=== PATIENT | female | born 1985 | race Caucasian/White ===

== ENCOUNTER 2017-07-22 12:46 | Inpatient (IN) | payer OTHER ==
[2017-07-22] MEDS: ONDANSETRON 4 MG INJ IV (13:31)
[2017-07-22] MEDS: ACETAMINOPHEN 325 MG TAB PO (13:31)
[2017-07-22] MEDS: morphine 4 MG/ML VIAL IV ×2 (13:31→16:49)
[2017-07-22] MEDS: SODIUM CHLORIDE 0.9% 1L BAG IV* (13:32)
[2017-07-22 13:43] LABS: ADD MAN DIFF? NO
[2017-07-22 13:45] LABS: BASOPHILS % 0.3 % (0.0-2.0); HEMATOCRIT 41.4 % (37.0-47.0); LYMPHOCYTES # 1.4 10^3/ul (0.8-2.9); LYMPHOCYTES % 9.4 % (15.0-51.0); MEAN CORPUSCULAR HEMOGLOBIN 26.2 pg (29.0-33.0); MEAN CORPUSCULAR HGB CONC 31.4 g/dl (32.0-37.0); MEAN CORPUSCULAR VOLUME 83.5 fl (82.0-101.0); MEAN PLATELET VOLUME 9.5 fl (7.4-10.4); MONOCYTES % 6.7 % (0.0-11.0); NEUTROPHIL # 11.9 10^3/ul (1.6-7.5); NEUTROPHILS % 83.3 % (39.0-77.0); PLATELET COUNT 337 10^3/UL (140-415); RED BLOOD COUNT 4.96 10^6/ul (4.20-5.40); RED CELL DISTRIBUTION WIDTH 14.6 % (11.5-14.5)
[2017-07-22 13:45] LABS: WHITE BLOOD COUNT 14.3 10^3/ul (4.8-10.8)
[2017-07-22 14:01] LABS: LACTIC ACID 1.2 mmol/L (0.5-2.0)
[2017-07-22 14:03] LABS: ALANINE AMINOTRANSFERASE 20 IU/L (13-69); ALBUMIN 4.5 g/dl (3.3-4.9); ALBUMIN/GLOBULIN RATIO 1.18; ALKALINE PHOSPHATASE 87 IU/L (42-121); ANION GAP 16 (8-16); ASPARTATE AMINO TRANSFERASE 16 IU/L (15-46); BILIRUBIN,INDIRECT 0.7 mg/dl (0-1.1); BILIRUBIN,TOTAL 0.7 mg/dl (0.2-1.3); BLOOD UREA NITROGEN 5 mg/dl (7-20); CALCIUM 9.1 mg/dl (8.4-10.2); CARBON DIOXIDE 25 mmol/L (21-31); CHLORIDE 100 mmol/L (97-110); GLUCOSE 98 mg/dl (70-220); POTASSIUM 3.7 mmol/L (3.5-5.1); SODIUM 137 mmol/L (135-144); TOTAL PROTEIN 8.3 g/dl (6.1-8.1)
[2017-07-22 14:06] LABS: INR 0.97
[2017-07-22 14:07] LABS: PARTIAL THROMBOPLASTIN TIME 33.7 Sec (25.0-35.0)
[2017-07-22 15:29] LABS: ADD UMIC YES; UR ASCORBIC ACID NEGATIVE (NEGATIVE); UR BACTERIA FEW /HPF (NONE SEEN); UR BILIRUBIN (Dip) NEGATIVE (NEGATIVE); UR BLOOD (Dip) 2+ mg/dL (NEGATIVE); UR CLARITY CLEAR (CLEAR); UR COLOR YELLOW (YELLOW); UR GLUCOSE (Dip) NEGATIVE (NEGATIVE); UR KETONES (Dip) TRACE mg/dL (NEGATIVE); UR LEUKOCYTE ESTERASE (Dip) 2+ Leu/ul (NEGATIVE); UR MUCUS FEW /HPF (NONE SEEN); UR NITRITE (Dip) NEGATIVE (NEGATIVE); UR RBC 13 /HPF (0-5); UR SPECIFIC GRAVITY (Dip) 1.013 (1.003-1.030); UR SQUAMOUS EPITHELIAL CELL FEW /HPF (FEW); UR TOTAL PROTEIN (Dip) NEGATIVE (NEGATIVE); UR UROBILINOGEN (Dip) NEGATIVE (NEGATIVE); UR WBC 60 /HPF (0-5)
[2017-07-22] MEDS: CEFTRIAXONE 1 GM/50 ML (PMX) 50 ML IVPB (15:48)
[2017-07-22] MEDS: KETOROLAC 30 MG INJ IV (16:48)
[2017-07-22] MEDS: AZITHROMYCIN 250 MG TAB PO (17:24)
[2017-07-22] MEDS: LACTATED RINGER'S 1,000 ML IV (18:16)
[2017-07-22] MEDS: metroNIDAZOLE 500 MG/NS (PMX) 100 ML IVPB (18:18)
[2017-07-22] MEDS ORDERED: morphine 2 MG INJ IV (20:30)
[2017-07-22] MEDS ORDERED: NACL 0.9% 3 ML SYG IV (20:30)
[2017-07-22] MEDS ORDERED: ONDANSETRON 4 MG INJ IV (20:30)
[2017-07-22] MEDS: SOD CHLORIDE 0.9% 1,000 ML IV (21:20)
[2017-07-22] MEDS: SOD CHLORIDE 0.9% 500 ML IV (22:07)
[2017-07-22] MEDS ORDERED: GENTAMICIN IV PER PHARMACY XX (23:00)
[2017-07-23] MEDS: CLINDAMYCIN 900 MG/D5W (PMX) 50 ML IVPB ×2 (00:04→05:33)
[2017-07-23] MEDS: SOD CHLORIDE 0.9% IVPB (01:34)
[2017-07-23] MEDS: GENTAMICIN IVPB (01:34)
[2017-07-23] MEDS: metroNIDAZOLE 500 MG/NS (PMX) 100 ML IVPB ×3 (02:44→22:08)
[2017-07-23] MEDS: SOD CHLORIDE 0.9% 1,000 ML IV ×4 (03:10→16:50)
[2017-07-23 03:28] LABS: ADD MAN DIFF? NO
[2017-07-23 03:33] LABS: BASOPHILS % 0.2 % (0.0-2.0); EOSINOPHILS % 0.1 % (0.0-7.0); HEMATOCRIT 32.2 % (37.0-47.0); HEMOGLOBIN 10.3 g/dl (12.0-16.0); LYMPHOCYTES # 1.5 10^3/ul (0.8-2.9); LYMPHOCYTES % 9.5 % (15.0-51.0); MEAN CORPUSCULAR HEMOGLOBIN 26.8 pg (29.0-33.0); MEAN CORPUSCULAR VOLUME 83.9 fl (82.0-101.0); MEAN PLATELET VOLUME 9.7 fl (7.4-10.4); MONOCYTE # 1.1 10^3/ul (0.3-0.9); MONOCYTES % 6.6 % (0.0-11.0); NEUTROPHIL # 13.4 10^3/ul (1.6-7.5); NEUTROPHILS % 83.2 % (39.0-77.0); PLATELET COUNT 252 10^3/UL (140-415); RED BLOOD COUNT 3.84 10^6/ul (4.20-5.40); RED CELL DISTRIBUTION WIDTH 14.6 % (11.5-14.5)
[2017-07-23 03:33] LABS: WHITE BLOOD COUNT 16.1 10^3/ul (4.8-10.8)
[2017-07-23 03:47] LABS: LACTIC ACID 0.8 mmol/L (0.5-2.0)
[2017-07-23 03:49] LABS: ALANINE AMINOTRANSFERASE 21 IU/L (13-69); ALBUMIN 2.9 g/dl (3.3-4.9); ALBUMIN/GLOBULIN RATIO 0.96; ALKALINE PHOSPHATASE 66 IU/L (42-121); ANION GAP 11 (8-16); ASPARTATE AMINO TRANSFERASE 12 IU/L (15-46); BILIRUBIN,INDIRECT 0.7 mg/dl (0-1.1); BILIRUBIN,TOTAL 0.7 mg/dl (0.2-1.3); BLOOD UREA NITROGEN 5 mg/dl (7-20); CALCIUM 7.8 mg/dl (8.4-10.2); CARBON DIOXIDE 22 mmol/L (21-31); CHLORIDE 109 mmol/L (97-110); CHOL/HDL RATIO 3.6 RATIO; CHOLESTEROL 101 mg/dl (100-200); CREATININE 0.56 mg/dl (0.44-1.00); GLUCOSE 88 mg/dl (70-220); HDL CHOLESTEROL 28 mg/dl (34-82); LDL CHOLESTEROL,CALCULATED 56 mg/dl; MAGNESIUM 1.4 mg/dl (1.7-2.5); POTASSIUM 3.7 mmol/L (3.5-5.1); SODIUM 138 mmol/L (135-144); TOTAL PROTEIN 5.9 g/dl (6.1-8.1); TRIGLYCERIDES 87 mg/dl (0-149)
[2017-07-23 03:50] LABS: HEMOGLOBIN A1C 5.3 % (0-5.9)
[2017-07-23 04:57] LABS: THYROID STIMULATING HORMONE 0.511 MIU/L (0.465-4.680)
[2017-07-23] MEDS: KETOROLAC 30 MG INJ IV (05:58)
[2017-07-23] MEDS: SOD CHLORIDE 0.9% 500 ML IV (06:45)
[2017-07-23] MEDS: MAG SULFATE 2GM IN 50 ML IVPB (07:54)
[2017-07-23] MEDS ORDERED: MAGNESIUM SULFATE 3 GM in DEXTROSE 5% 100 ML IVPB (08:00)
[2017-07-23] MEDS ORDERED: MEROPENEM 1 GM/50ML(PMX) 50 ML IVPB (08:30)
[2017-07-23] MEDS: MAGNESIUM SULFATE 1 GM/D5W 100 ML IVPB (09:32)
[2017-07-23] MEDS: CEFTRIAXONE 1 GM/50 ML (PMX) 50 ML IVPB (10:55)
[2017-07-23] MEDS: DOXYCYCLINE 100 MG in SOD CHLORIDE 0.9% 250 ML IVPB ×2 (11:45→20:54)
[2017-07-23] MEDS: morphine LIQ (10 MG/5 ML) CUP PO (16:48)
[2017-07-23] MEDS ORDERED: IOHEXOL 10 MG(I)/ML (PED) BTL PO (17:30)
[2017-07-23] MEDS ORDERED: IOHEXOL 14.3 MG(I)/ML (ADULT) BTL PO (17:30)
[2017-07-23] MEDS: BARIUM SULF 2% 450 ML BTL (BERRY SMOOTHIE) PO (17:55)
[2017-07-23] MEDS: IOHEXOL 300MG/ML 150 ML BTL (18:39)
[2017-07-23] MEDS: SOD CHLORIDE 0.9% 100 ML (18:39)
[2017-07-23 20:04] LABS: ADD MAN DIFF? NO
[2017-07-23 20:09] LABS: WHITE BLOOD COUNT 16.7 10^3/ul (4.8-10.8)
[2017-07-23 20:09] LABS: BASOPHILS % 0.2 % (0.0-2.0); EOSINOPHILS % 0.1 % (0.0-7.0); HEMATOCRIT 33.6 % (37.0-47.0); HEMOGLOBIN 10.9 g/dl (12.0-16.0); LYMPHOCYTES # 1.2 10^3/ul (0.8-2.9); MEAN CORPUSCULAR HEMOGLOBIN 26.8 pg (29.0-33.0); MEAN CORPUSCULAR HGB CONC 32.4 g/dl (32.0-37.0); MEAN CORPUSCULAR VOLUME 82.6 fl (82.0-101.0); MEAN PLATELET VOLUME 9.6 fl (7.4-10.4); MONOCYTE # 0.8 10^3/ul (0.3-0.9); MONOCYTES % 4.9 % (0.0-11.0); NEUTROPHIL # 14.6 10^3/ul (1.6-7.5); NEUTROPHILS % 87.3 % (39.0-77.0); PLATELET COUNT 289 10^3/UL (140-415); RED BLOOD COUNT 4.07 10^6/ul (4.20-5.40); RED CELL DISTRIBUTION WIDTH 14.4 % (11.5-14.5)
[2017-07-23] MEDS: ACETAMINOPHEN 325 MG TAB PO (21:15)
[2017-07-24] MEDS: SOD CHLORIDE 0.9% 1,000 ML IV ×3 (02:14→21:18)
[2017-07-24] MEDS: metroNIDAZOLE 500 MG/NS (PMX) 100 ML IVPB ×3 (05:25→22:58)
[2017-07-24 06:10] LABS: ADD MAN DIFF? NO
[2017-07-24 06:21] LABS: WHITE BLOOD COUNT 16.1 10^3/ul (4.8-10.8)
[2017-07-24 06:21] LABS: BASOPHILS % 0.2 % (0.0-2.0); EOSINOPHILS % 0.2 % (0.0-7.0); HEMOGLOBIN 9.7 g/dl (12.0-16.0); LYMPHOCYTES # 0.9 10^3/ul (0.8-2.9); LYMPHOCYTES % 5.5 % (15.0-51.0); MEAN CORPUSCULAR HEMOGLOBIN 26.6 pg (29.0-33.0); MEAN CORPUSCULAR HGB CONC 32.3 g/dl (32.0-37.0); MEAN CORPUSCULAR VOLUME 82.4 fl (82.0-101.0); MEAN PLATELET VOLUME 10.3 fl (7.4-10.4); MONOCYTE # 1.1 10^3/ul (0.3-0.9); MONOCYTES % 6.8 % (0.0-11.0); NEUTROPHILS % 86.7 % (39.0-77.0); PLATELET COUNT 286 10^3/UL (140-415); RED BLOOD COUNT 3.64 10^6/ul (4.20-5.40); RED CELL DISTRIBUTION WIDTH 14.7 % (11.5-14.5)
[2017-07-24] MEDS: CEFTRIAXONE 1 GM/50 ML (PMX) 50 ML IVPB (08:23)
[2017-07-24] MEDS: morphine LIQ (10 MG/5 ML) CUP PO ×2 (08:31→15:56)
[2017-07-24] MEDS: DOXYCYCLINE 100 MG in SOD CHLORIDE 0.9% 250 ML IVPB ×2 (09:04→21:18)
[2017-07-24] MEDS: HYDROmorphONE 0.5 MG/0.5 ML SYG IV (18:19)
[2017-07-24 19:44] LABS: RAPID PLASMA REAGIN NONREACTIVE (NR)
[2017-07-25] MEDS: morphine LIQ (10 MG/5 ML) CUP PO ×2 (01:50→23:59)
[2017-07-25] MEDS: metroNIDAZOLE 500 MG/NS (PMX) 100 ML IVPB ×3 (06:12→23:19)
[2017-07-25] MEDS ORDERED: metroNIDAZOLE 500 MG/100 ML NS IVPB (07:00)
[2017-07-25] MEDS ORDERED: ROCURONIUM 50 MG INJ (07:00)
[2017-07-25] MEDS: CEFTRIAXONE 1 GM/50 ML (PMX) 50 ML IVPB (08:37)
[2017-07-25] MEDS: SOD CHLORIDE 0.9% 1,000 ML IV (08:37)
[2017-07-25] MEDS: DOXYCYCLINE 100 MG in SOD CHLORIDE 0.9% 250 ML IVPB ×2 (09:17→20:44)
[2017-07-25 09:53] LABS: ADD MAN DIFF? NO
[2017-07-25 10:00] LABS: WHITE BLOOD COUNT 11.1 10^3/ul (4.8-10.8)
[2017-07-25 10:00] LABS: BASOPHILS % 0.2 % (0.0-2.0); EOSINOPHILS % 0.2 % (0.0-7.0); HEMATOCRIT 30.1 % (37.0-47.0); HEMOGLOBIN 9.8 g/dl (12.0-16.0); LYMPHOCYTES # 1.2 10^3/ul (0.8-2.9); LYMPHOCYTES % 10.8 % (15.0-51.0); MEAN CORPUSCULAR HEMOGLOBIN 26.5 pg (29.0-33.0); MEAN CORPUSCULAR HGB CONC 32.6 g/dl (32.0-37.0); MEAN CORPUSCULAR VOLUME 81.4 fl (82.0-101.0); MEAN PLATELET VOLUME 9.6 fl (7.4-10.4); MONOCYTE # 0.9 10^3/ul (0.3-0.9); MONOCYTES % 8.2 % (0.0-11.0); NEUTROPHIL # 8.9 10^3/ul (1.6-7.5); NEUTROPHILS % 80.1 % (39.0-77.0); PLATELET COUNT 323 10^3/UL (140-415); RED CELL DISTRIBUTION WIDTH 14.9 % (11.5-14.5)
[2017-07-25 10:38] LABS: ALANINE AMINOTRANSFERASE 15 IU/L (13-69); ALBUMIN 2.5 g/dl (3.3-4.9); ALBUMIN/GLOBULIN RATIO 0.83; ALKALINE PHOSPHATASE 67 IU/L (42-121); ANION GAP 10 (8-16); ASPARTATE AMINO TRANSFERASE 11 IU/L (15-46); BLOOD UREA NITROGEN 2 mg/dl (7-20); CARBON DIOXIDE 23 mmol/L (21-31); CHLORIDE 111 mmol/L (97-110); CREATININE 0.51 mg/dl (0.44-1.00); GLUCOSE 96 mg/dl (70-220); POTASSIUM 3.5 mmol/L (3.5-5.1); SODIUM 140 mmol/L (135-144); TOTAL PROTEIN 5.5 g/dl (6.1-8.1)
[2017-07-25] MEDS: morphine 2 MG INJ IV ×2 (10:47→17:16)
[2017-07-25] MEDS ORDERED: LIDOCAINE 1%/EPI 30 ML INJ (12:43)
[2017-07-25] MEDS ORDERED: FENTAnyl 50 MCG/ML VIAL ×2 (13:14→13:55)
[2017-07-25] MEDS ORDERED: MIDAZOLAM 1 MG/ML 2 ML INJ (13:14)
[2017-07-25] MEDS ORDERED: DEXAMETHASONE 4 MG/ML 1 ML INJ (13:42)
[2017-07-25] MEDS ORDERED: ONDANSETRON 4 MG INJ (13:42)
[2017-07-25] MEDS ORDERED: METOCLOPRAMIDE 10 MG INJ (13:42)
[2017-07-25] MEDS ORDERED: HYDROmorphONE 2 MG/ML SYG (14:14)
[2017-07-25] MEDS ORDERED: SUGAMMADEX SODIUM 200 MG/2 ML VIAL IV (14:22)
[2017-07-25] MEDS ORDERED: ONDANSETRON 4 MG INJ IV (15:00)
[2017-07-25] MEDS ORDERED: HYDROmorphONE 1 MG/5 ML IV SYRINGE IV ×2 (15:00)
[2017-07-26] MEDS: morphine 2 MG INJ IV ×5 (04:20→21:33)
[2017-07-26] MEDS: metroNIDAZOLE 500 MG/NS (PMX) 100 ML IVPB ×3 (05:59→21:29)
[2017-07-26] MEDS: CEFTRIAXONE 1 GM/50 ML (PMX) 50 ML IVPB (08:34)
[2017-07-26] MEDS: DOXYCYCLINE 100 MG in SOD CHLORIDE 0.9% 250 ML IVPB ×2 (09:35→22:35)
[2017-07-26 11:47] LABS: ADD MAN DIFF? NO
[2017-07-26 11:50] LABS: WHITE BLOOD COUNT 12.5 10^3/ul (4.8-10.8)
[2017-07-26 11:50] LABS: BASOPHILS % 0.2 % (0.0-2.0); HEMOGLOBIN 10.7 g/dl (12.0-16.0); LYMPHOCYTES % 8.1 % (15.0-51.0); MEAN CORPUSCULAR HEMOGLOBIN 26.4 pg (29.0-33.0); MEAN CORPUSCULAR HGB CONC 32.4 g/dl (32.0-37.0); MEAN CORPUSCULAR VOLUME 81.3 fl (82.0-101.0); MEAN PLATELET VOLUME 10.3 fl (7.4-10.4); MONOCYTE # 0.9 10^3/ul (0.3-0.9); MONOCYTES % 6.9 % (0.0-11.0); NEUTROPHIL # 10.6 10^3/ul (1.6-7.5); NEUTROPHILS % 84.4 % (39.0-77.0); PLATELET COUNT 384 10^3/UL (140-415); RED BLOOD COUNT 4.06 10^6/ul (4.20-5.40); RED CELL DISTRIBUTION WIDTH 15.3 % (11.5-14.5)
[2017-07-26 12:09] LABS: ANION GAP 9 (8-16); BLOOD UREA NITROGEN 7 mg/dl (7-20); CALCIUM 8.5 mg/dl (8.4-10.2); CARBON DIOXIDE 24 mmol/L (21-31); CHLORIDE 111 mmol/L (97-110); CREATININE 0.48 mg/dl (0.44-1.00); GLUCOSE 118 mg/dl (70-220); PHOSPHORUS 3.3 mg/dl (2.5-4.9); POTASSIUM 3.9 mmol/L (3.5-5.1); SODIUM 140 mmol/L (135-144)
[2017-07-26 17:31] LABS: HEPATITIS B SURFACE ANTIBODY NEGATIVE (NEGATIVE)
[2017-07-26 18:05] LABS: HEPATITIS B SURFACE ANTIGEN NEGATIVE (NEGATIVE)
[2017-07-26 18:23] LABS: HEPATITIS B CORE ANTIBODY NEGATIVE (NEGATIVE); HEPATITIS C VIRAL ANTIBODY NEGATIVE (NEGATIVE)
[2017-07-26 18:55] LABS: HIV 1&2 ANTIBODY NEGATIVE (NEGATIVE)
[2017-07-27 05:59] LABS: ADD MAN DIFF? NO
[2017-07-27] MEDS: metroNIDAZOLE 500 MG/NS (PMX) 100 ML IVPB (06:01)
[2017-07-27 06:03] LABS: WHITE BLOOD COUNT 7.4 10^3/ul (4.8-10.8)
[2017-07-27 06:03] LABS: BASOPHILS % 0.4 % (0.0-2.0); EOSINOPHILS % 0.4 % (0.0-7.0); HEMATOCRIT 31.9 % (37.0-47.0); HEMOGLOBIN 10.1 g/dl (12.0-16.0); LYMPHOCYTES # 2.3 10^3/ul (0.8-2.9); LYMPHOCYTES % 31.7 % (15.0-51.0); MEAN CORPUSCULAR HEMOGLOBIN 26.3 pg (29.0-33.0); MEAN CORPUSCULAR HGB CONC 31.7 g/dl (32.0-37.0); MEAN CORPUSCULAR VOLUME 83.1 fl (82.0-101.0); MEAN PLATELET VOLUME 10.2 fl (7.4-10.4); MONOCYTE # 0.5 10^3/ul (0.3-0.9); MONOCYTES % 6.5 % (0.0-11.0); NEUTROPHIL # 4.4 10^3/ul (1.6-7.5); NEUTROPHILS % 59.5 % (39.0-77.0); PLATELET COUNT 375 10^3/UL (140-415); RED BLOOD COUNT 3.84 10^6/ul (4.20-5.40); RED CELL DISTRIBUTION WIDTH 15.7 % (11.5-14.5)
[2017-07-27 06:39] LABS: ALANINE AMINOTRANSFERASE 14 IU/L (13-69); ALBUMIN 2.7 g/dl (3.3-4.9); ALBUMIN/GLOBULIN RATIO 0.87; ALKALINE PHOSPHATASE 60 IU/L (42-121); ANION GAP 10 (8-16); ASPARTATE AMINO TRANSFERASE 18 IU/L (15-46); BILIRUBIN,INDIRECT 0.1 mg/dl (0-1.1); BILIRUBIN,TOTAL 0.1 mg/dl (0.2-1.3); BLOOD UREA NITROGEN 11 mg/dl (7-20); CALCIUM 8.6 mg/dl (8.4-10.2); CARBON DIOXIDE 25 mmol/L (21-31); CHLORIDE 111 mmol/L (97-110); CREATININE 0.62 mg/dl (0.44-1.00); GLUCOSE 85 mg/dl (70-220); SODIUM 142 mmol/L (135-144); TOTAL PROTEIN 5.8 g/dl (6.1-8.1)
[2017-07-27] MEDS: morphine 2 MG INJ IV ×4 (07:33→20:33)
[2017-07-27] MEDS: CEFTRIAXONE 1 GM/50 ML (PMX) 50 ML IVPB (08:20)
[2017-07-27] MEDS: DOXYCYCLINE 100 MG TAB PO ×2 (09:57→20:16)
[2017-07-27] MEDS: L ACIDOPHIL/B LACTIS/B LONGUM CAPSULE PO ×2 (09:58→20:16)
[2017-07-27] MEDS: CLINDAMYCIN 300 MG CAP PO ×2 (12:01→17:37)
[2017-07-27 22:14] LABS: RAPID PLASMA REAGIN NONREACTIVE (NR)
[2017-07-28] MEDS: CLINDAMYCIN 300 MG CAP PO ×4 (00:13→17:32)
[2017-07-28] MEDS: L ACIDOPHIL/B LACTIS/B LONGUM CAPSULE PO ×2 (09:11→21:14)
[2017-07-28] MEDS: DOXYCYCLINE 100 MG TAB PO ×2 (09:11→21:14)
[2017-07-28] MEDS: CEFPODOXIME 200 MG TAB PO ×2 (11:41→21:14)
[2017-07-28 14:18] LABS: ADD MAN DIFF? NO
[2017-07-28 14:20] LABS: BASOPHILS % 0.4 % (0.0-2.0); EOSINOPHILS # 0.1 10^3/ul (0.0-0.5); EOSINOPHILS % 0.9 % (0.0-7.0); HEMATOCRIT 34.9 % (37.0-47.0); HEMOGLOBIN 11.4 g/dl (12.0-16.0); LYMPHOCYTES # 2.3 10^3/ul (0.8-2.9); LYMPHOCYTES % 24.8 % (15.0-51.0); MEAN CORPUSCULAR HEMOGLOBIN 26.8 pg (29.0-33.0); MEAN CORPUSCULAR HGB CONC 32.7 g/dl (32.0-37.0); MEAN CORPUSCULAR VOLUME 82.1 fl (82.0-101.0); MONOCYTE # 0.7 10^3/ul (0.3-0.9); MONOCYTES % 7.7 % (0.0-11.0); NEUTROPHIL # 5.9 10^3/ul (1.6-7.5); PLATELET COUNT 430 10^3/UL (140-415); RED BLOOD COUNT 4.25 10^6/ul (4.20-5.40)
[2017-07-28 14:20] LABS: WHITE BLOOD COUNT 9.1 10^3/ul (4.8-10.8)
[2017-07-28 14:40] LABS: ANION GAP 13 (8-16); BLOOD UREA NITROGEN 6 mg/dl (7-20); CALCIUM 8.8 mg/dl (8.4-10.2); CARBON DIOXIDE 28 mmol/L (21-31); CHLORIDE 105 mmol/L (97-110); GLUCOSE 92 mg/dl (70-220); MAGNESIUM 1.7 mg/dl (1.7-2.5); PHOSPHORUS 3.8 mg/dl (2.5-4.9); POTASSIUM 3.8 mmol/L (3.5-5.1); SODIUM 142 mmol/L (135-144)
[2017-07-29] MEDS: CLINDAMYCIN 300 MG CAP PO ×2 (00:31→05:35)
[2017-07-29] MEDS: CEFPODOXIME 200 MG TAB PO (08:52)
[2017-07-29] MEDS: L ACIDOPHIL/B LACTIS/B LONGUM CAPSULE PO (08:52)
[2017-07-29] MEDS: DOXYCYCLINE 100 MG TAB PO (08:54)
== END 2017-07-29 11:19 | disposition home or self-care (01) | DRG 744 ==
LOC: FTE 12:46 → PP2 18:16
PROC: 0UN94ZZ Release Uterus, Percutaneous Endoscopic Approach (ICD-10-PCS; principal; 2017-07-25 13:17)
PROC: 0DNN4ZZ Release Sigmoid Colon, Percutaneous Endoscopic Approach (ICD-10-PCS; 2017-07-25 13:17)
PROC: 0DNE4ZZ Release Large Intestine, Percutaneous Endoscopic Approach (ICD-10-PCS; 2017-07-25 13:17)
PROC: 0UNF4ZZ Release Cul-de-sac, Percutaneous Endoscopic Approach (ICD-10-PCS; 2017-07-25 13:17)
DX: N70.93 Salpingitis and oophoritis, unspecified (principal); N39.0 Urinary tract infection, site not specified; N94.89 Other specified conditions associated with female genital organs and menstrual cycle; Z72.0 Tobacco use; Z88.0 Allergy status to penicillin; N73.6 Female pelvic peritoneal adhesions (postinfective); Z91.14 Patient's other noncompliance with medication regimen
CPT/HCPCS: 36415; 74176; 74177; 80048; 80053; 80061; 81001; 83036; 83605; 83735; 84100; 84443; 84703; 85025; 85610; 85730; 86592; 86703; 86704; 86706; 86803; 87040; 87070; 87086; 87340; 87591; 96374; 96375; 96376; 99285-25

== ENCOUNTER 2018-03-20 21:16 | Emergency (ER) | payer OTHER ==
[2018-03-20] MEDS: DIPHTH/TET/ACEL PERTUSS (ADULT) 0.5 ML VIAL IM* (23:32)
== END 2018-03-21 01:33 | disposition home or self-care (01) ==
LOC: FTE 03-21 01:33
DX: S61.224A Laceration with foreign body of right ring finger without damage to nail, initial encounter (principal); W22.8XXA Striking against or struck by other objects, initial encounter; Y92.9 Unspecified place or not applicable; Z23 Encounter for immunization
CPT/HCPCS: 73030; 73030-RT; 73130-RT; 90471; 90715; 99283-25